=== PATIENT | female | born 1980 | race Caucasian/White ===

== ENCOUNTER → 2023-10-26 11:33 | Outpatient (BNVA) | payer OTHER, SELFPAY | PROVIDERS: PCP Family Medicine; Visit Provider Family Medicine | DX: E05.00 Thyrotoxicosis with diffuse goiter without thyrotoxic crisis or storm (principal); G35 Multiple sclerosis; I25.10 Atherosclerotic heart disease of native coronary artery without angina pectoris; Z79.899 Other long term (current) drug therapy | CPT/HCPCS: 80053; 80061; 84439; 84443; 85025 ==

== ENCOUNTER → 2023-11-16 13:35 | Outpatient (BNVA) | payer OTHER, SELFPAY | PROVIDERS: PCP Family Medicine; Visit Provider Family Medicine | DX: L98.9 Disorder of the skin and subcutaneous tissue, unspecified (principal) | CPT/HCPCS: 88305 ==

== ENCOUNTER → 2023-11-26 09:00 | Outpatient (BNVA) | payer OTHER, SELFPAY | PROVIDERS: PCP Family Medicine; Referring Provider Family Medicine; Visit Provider Psychiatry & Neurology Neurology | DX: G35 Multiple sclerosis (principal); E05.00 Thyrotoxicosis with diffuse goiter without thyrotoxic crisis or storm; H57.89 Other specified disorders of eye and adnexa; E07.9 Disorder of thyroid, unspecified; I25.10 Atherosclerotic heart disease of native coronary artery without angina pectoris; E53.8 Deficiency of other specified B group vitamins | CPT/HCPCS: 36415; 82306; 82607; 82746; 83921 ==

== ENCOUNTER 2024-01-02 06:53 | Outpatient (CLI) | payer OTHER, SELFPAY ==
--- NOTE | 2024-01-02 07:15 | MR_ITS ---
WS: [id number] MRI BRAIN WITH AND WITHOUT CONTRAST HISTORY: G35 - Multiple sclerosis COMPARISON: 09/14/2022 TECHNIQUE: Multiplanar imaging performed through the brain with MultiHance 16 ml's IV. No interval change in the T2 and FLAIR hyper intensities in the callosal and pericallosal distributio n. Slightly greater demyelinating lesions with a linear configuration in the LEFT pericallosal region . There are few additional juxtacortical and subcortical white matter lesions. As compared to the ryan or study from 09/14/2022 no interval progression. No cerebellar lesions identified. The upper cervical cord is negative. No susceptibility artifacts or prior lacunar infarcts. Ventricles and extra-axial spaces are normal. Clivus and pituitary gland are normal. Visualized posterior fossa and brainstem are also normal. Postcontrast images are negative for masses or vascular malformations. No enhancement within the demy elinating lesions. Dural venous sinuses are normal. Paranasal sinuses: Well aerated with no significant disease. Tornwaldt cyst in the posterior RIGHT na sopharynx measures 6 mm. Mastoid air cells: Normal. Calvarium and scalp: Normal. MR/MR head wo/w con [id number] IMPRESSION: 1. Stable, nonenhancing demyelinating lesions as described above. No change si nce 09/14/2022. Number of demyelinating lesions is just slightly increased in th e LEFT pericallosal distribution. 2. No acute infarct.
[2024-01-02] MEDS: gadobenate dimeglumine 20 mL vial 16 ML IV (07:52)
== END 2024-01-02 06:54 | disposition home or self-care (01) ==
PROVIDERS: PCP Family Medicine; Visit Provider Psychiatry & Neurology Neurology
DX: G35 Multiple sclerosis (principal); J39.2 Other diseases of pharynx
CPT/HCPCS: 70553; A9577

== ENCOUNTER 2024-01-03 14:55 | Outpatient (CLI) | payer OTHER, SELFPAY ==
--- NOTE | 2024-01-03 15:15 | MR_ITS ---
WS: [id number] MRI CERVICAL SPINE with and without contrast HISTORY: G35 - Multiple sclerosis COMPARISON: 09/18/2022 Technique: Multiplanar, multisequence noncontrast imaging of the cervical spine. Post MRI imaging 16 mL MultiHance. Mild LEFT curvature cervical spine. No inferior displacement of the cerebellar tonsils. No cord atrophy or edema. No definite identifiable demyelinating lesions within the cervical cord. Th ere is very minimal increased, intermediate signal, along the ventral cord at the C4 level through th e upper thoracic cord. Suspicious but indeterminate for demyelinating plaque. On the prior report att ention was directed to the C4-5 level. Suspicious lesions at the C4-5 level were indicated. Craniocervical junction, C1 and C2 relationship, odontoid process and soft tissues are normal. No disc protrusions or significant osteophytosis. No facet joint arthritis. There is no central or fo raminal stenosis. No postcontrast enhancement of the cervical cord. No active demyelination is identified. Mild thyromegaly. No enhancing nodules. MR/MR cervical spine wo/w [id number] IMPRESSION: 1. Subtle areas of increased T2 and FLAIR signal along the ventral cervical co rd from C4 through the upper thoracic spine intermittently visualized. These ar e very subtle areas and indeterminate for demyelinating disease. There is no en hancement. 2. No cervical spine stenosis.
[2024-01-03] MEDS: gadobenate dimeglumine 20 mL vial IV (15:47)
--- NOTE | 2024-01-03 16:00 | MR_ITS ---
WS: [id number] MRI THORACIC SPINE with and without contrast HISTORY: G35 - Multiple sclerosis COMPARISON: 09/18/2022 TECHNIQUE: Multiplanar sequences are performed in sagittal and axial planes. MultiHance 16 mL. Normal thoracic alignment. No fractures or marrow edema. Reidentified is increased T2 and FLAIR signal in the central and LEFT lateral thoracic cord at T8-9 e xtending over a length of 7 mm. There is additional areas of increased linear signal which I suspect are probably artifact. None of these areas enhance. No central or foraminal stenosis. Paravertebral soft tissues are normal. Bilateral adrenal nodules un changed. Probably representing benign adenomas. MR/MR thoracic spine wo/w [id number] IMPRESSION: 1. No enhancing demyelinating lesions in the thoracic cord. 2. Stable, nonenhancing 7 mm demyelination at T8-9. 3. There are a few additional linear areas of increased signal in the thoracic cord, favor artifact.
== END 2024-01-03 14:56 | disposition home or self-care (01) ==
LOC: RAD 14:55
PROVIDERS: PCP Family Medicine; Visit Provider Psychiatry & Neurology Neurology
DX: G35 Multiple sclerosis (principal); E05.00 Thyrotoxicosis with diffuse goiter without thyrotoxic crisis or storm
CPT/HCPCS: 72156; 72157; A9577

== ENCOUNTER 2024-01-17 06:00 | Outpatient (CLI) | payer OTHER, SELFPAY | END 2024-01-17 06:01 | disposition home or self-care (01) | PROVIDERS: PCP Family Medicine; Visit Provider Internal Medicine | DX: I49.8 Other specified cardiac arrhythmias (principal); R07.9 Chest pain, unspecified | CPT/HCPCS: 93005 ==

== ENCOUNTER 2024-01-28 09:35 | Outpatient (CLI) | payer OTHER, SELFPAY ==
[2024-01-28 10:30] LABS: Urine Creatinine 41 mg/dL (28-217)
[2024-01-28 10:52] LABS: Total Volume Urine 2600 ml
== END 2024-01-28 09:36 | disposition home or self-care (01) ==
LOC: LAB 09:35
PROVIDERS: PCP Family Medicine; Visit Provider Internal Medicine
DX: E05.00 Thyrotoxicosis with diffuse goiter without thyrotoxic crisis or storm (principal); R53.83 Other fatigue; Z48.02 Encounter for removal of sutures
CPT/HCPCS: 82530; 82570

== ENCOUNTER 2024-02-29 13:09 | Outpatient (CLI) | payer OTHER, SELFPAY ==
--- NOTE | 2024-02-29 | ECG_ITS ---
[facility]: 2024-02[facility]29 Pat Name: Elvira Dobbs Department: Room: Gender: Female Natural Resource Technician: : 1980 Requested By: Arti Pro Order Number: [id number] Victoria MD: Arti Pro M.D. Interpretive Statements Lung unchanged pre/post procedure; Intraprocedure shortess of breath; Symptoms resoled by discharge PROCEDURE: At the baseline, the patient's blood pressure was 121/92 with a heart rate of 85. The baseline electrocardiogram showed normal sinus rhythm with normal ST-Ts.. The patient exercised for 5 minutes and 45 on a standard John protocol. Patient attained a maximum heart rate of 169 beats per minute(94% of the maximum predicted heart rate) with a blood pressure at the peak exercise of 186/69 mm Hg. The EKG at the peak exercise revealed no significant changes. Patient did not have any chest pain or any significant cardiac arrhythmias with the exercise During the recovery phase, there were no new changes. Blood pressure at the end of the recovery phase was 108/80 mm Hg with a heart rate of 92 per minute. CONCLUSION: 1. No severe EKG changes with the normal exercise . 2. No exercise-induced chest pain or cardiac arrhythmia 3. Slightly impaired exercise tolerance, attained a maximum of 7 point METs Electronically Signed On 03-02-2024 23:05:35 CDT by Arti Pro M.D. [email or web address]
[2024-02-29 13:19] VITALS: BMI 27.9
--- NOTE | 2024-02-29 13:41 | USCV_ITS ---
Stress Echo Elvira Dobbs Age: 43 Gender: F : 1980 Exam Date: 02/29/2024 13:53 Ordering Phys: Arti Pro MD ([email or web address]) Technologist: [place] [facility] [place] cp Rhythm: Sinus Patient History: Chest pain Cardiac Medications: Medications in past 24 hours: Contrast: Stress Results Protocol: John Total dose(mL): Exercise Duration (min:sec): 5:45 METS: 7 Resting HR: 78 Resting BP: 121 / 92 Peak HR: 169 Peak BP: 186 / Max Predicted HR: 179 94 % Max Predicted HR Target HR: 152 Double Product: [id number] Stress Summary: The patient's target heart rate was achieved BP Response: Normal Reason for Termination: Maximal effort/unable to continue Cardiac Symptoms: None ECG Analysis Resting ECG: Please see separate report Stress ECG: Please see separate report Arrhythmia: Please see separate report MEASUREMENTS (Male/Female) Normal Values FINDINGS The patient echocardiogram normal LV size and ejection fraction. Segmental wall motion analysis revealed no gross wall motion abnormalities. Normal aortic root. No pericardial effusion. With the peak exercise, there was good augmentation of all the segments with no exercise-induced wall motion abnormalities. During the recovery phase, there was no new changes CONCLUSIONS 1. Normal echocardiographic response to exercise 2. Low probability for coronary ischemia, based on the above findings Dr Arti Pro MD FAC (Electronically Signed) Final Date: 01 March 2024 16:35 S
[2024-02-29 14:17] VITALS: BP 108/80; PULSE 91
== END 2024-02-29 13:10 | disposition home or self-care (01) ==
PROVIDERS: PCP Family Medicine; Visit Provider Internal Medicine Cardiovascular Disease
DX: I25.118 Atherosclerotic heart disease of native coronary artery with other forms of angina pectoris (principal)
CPT/HCPCS: 93017; 93350

== ENCOUNTER 2024-04-15 11:00 | Outpatient (CLI) | payer OTHER, SELFPAY ==
--- NOTE | 2024-04-15 11:15 | USR_ITS ---
PROCEDURE INFORMATION: Exam: US Soft Tissue Head and Neck, Thyroid Exam date and time: 04/15/2024 11:16 AM Age: 43 years old Clinical indication: Condition or disease; Other: Nodule; Additional info: Thyroid nodule, include tirads TECHNIQUE: Imaging protocol: Real-time ultrasound scan of the neck with image documentation. Exam focused on the thyroid. COMPARISON: MR cervical spine wo/w [id number] 01/03/2024 4:32 PM FINDINGS: Right thyroid lobe: Enlarged without focal nodule. Increased vasculature. Left thyroid lobe: Enlarged without focal nodule. Increased vasculature. Isthmus: No nodules. Lymph nodes: No enlarged lymph nodes. US/US thyroid [id number] IMPRESSION: Mildly hypertrophic and hyperemic thyroid gland without focal nodule. Compatible with mild nonspecific thyroiditis, correlate clinically.
== END 2024-04-15 11:01 | disposition home or self-care (01) ==
LOC: RAD 11:00
PROVIDERS: PCP Family Medicine; Visit Provider Internal Medicine
DX: E04.1 Nontoxic single thyroid nodule (principal)
CPT/HCPCS: 76536

== ENCOUNTER → 2024-05-01 10:26 | Outpatient (BNVA) | payer OTHER, SELFPAY | PROVIDERS: PCP Family Medicine; Visit Provider Nurse Practitioner | DX: R39.9 Unspecified symptoms and signs involving the genitourinary system (principal); R10.9 Unspecified abdominal pain | CPT/HCPCS: 81000; 87086 ==

== ENCOUNTER → 2024-05-12 10:34 | Outpatient (BNVA) | payer OTHER, SELFPAY | PROVIDERS: PCP Family Medicine; Visit Provider Internal Medicine | DX: E04.1 Nontoxic single thyroid nodule (principal); E05.00 Thyrotoxicosis with diffuse goiter without thyrotoxic crisis or storm; H57.89 Other specified disorders of eye and adnexa; E07.9 Disorder of thyroid, unspecified; E27.9 Disorder of adrenal gland, unspecified | CPT/HCPCS: 84439; 84443; 84480 ==

== ENCOUNTER 2024-05-26 07:21 | Emergency (ER) | payer OTHER, SELFPAY ==
[2024-05-26 07:24] VITALS: BP 158/101; PULSE 68; RESP 16; TEMP 36.7; O2SAT 99
--- NOTE | 2024-05-26 07:26 | ECG_ITS ---
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
--- NOTE | 2024-05-26 07:26 | XR_ITS ---
WS: [email or web address] PORTABLE CHEST HISTORY: dyspnea/cough COMPARISON: None available. Lungs are clear and well expanded. No pleural effusion or pneumothorax. Cardiac size: Normal. Mediastinum/Aorta: Normal mediastinum. No osseous abnormality seen. XR/XR chest 1V portable [id number] IMPRESSION: Unremarkable portable chest.
--- NOTE | 2024-05-26 07:33 | W.ED.CHESTPA ---
HPI - Chest Pain General: Chief Complaint: Chest Pain Stated Complaint: n, chest pain and shoulder pain Time Seen by Provider: 05/26/24 07:25 History of Present Illness: 43-year-old female history of MS and a history of coronary artery disease presents emergency room with onset chest pain extending to the left shoulder. Patient does have a history of previous coronary artery disease and had a stent placed in 2019. Did not February 2024 she has not stress echo that was read as negative. Associated symptoms: Deny abdominal pain, dyspnea or fever(s) Related Data Home Medications Medication Instructions Recorded Confirmed aspirin 81 mg tablet,delayed 81 mg PO QAM 10/26/23 05/26/24 release bismuth subsalicylate 262 mg/15 mL 524 mg PO QID PRN Indigestion 05/26/24 05/26/24 oral suspension (Pepto-Bismol) ofatumumab 20 mg/0.4 mL 20 mg SUBCUT .Q30D 05/26/24 05/26/24 subcutaneous pen injector (Kesimpta Pen) Previous Rx's Medication Instructions Recorded armodafinil 250 mg tablet 250 mg PO DAILY #30 tabs 11/26/23 cholecalciferol (vitamin D3) 1,250 50,000 unit PO .weekly #14 caps 11/27/23 mcg (50,000 unit) capsule atorvastatin 20 mg tablet (Lipitor) 20 mg PO DAILY #90 tabs 01/17/24 escitalopram oxalate 10 mg tablet 10 mg PO DAILY #90 tabs 01/23/24 (Lexapro) hydroxyzine HCl 50 mg tablet 50 mg PO BID #180 tabs 01/23/24 atomoxetine 60 mg capsule 60 mg PO DAILY #30 caps 04/18/24 carvedilol 25 mg tablet 25 mg PO BID #180 tabs 04/21/24 oxybutynin chloride 5 mg 5 mg PO DAILY #30 tabs 05/12/24 tablet,extended release 24 hr ondansetron 4 mg disintegrating 4 mg PO Q6H PRN nausea and 05/26/24 tablet vomiting #20 tabs Allergies Allergy/AdvReac Type Severity Reaction Status Date / Time methimazole Allergy Mild ALGY-Hives Verified 05/09/24 12:56 Review of Systems Const: Denies: fever(s) or chills Card: Denies: chest pain Resp: Denies: dyspnea GI: Denies: abdominal pain : Denies: dysuria, urinary frequency or urinary urgency Musc: Denies: neck pain or back pain Skin/Breast: Denies: rash PFSH ED PFSH: Medical History Alcohol use disorder History of ST elevation myocardial infarction (STEMI) Anxiety Moderate major depression Interstitial cystitis (chronic) without hematuria ADHD Hypertension Graves disease Multiple sclerosis Thyroid eye disease Coronary artery disease Surgical History Stented coronary artery History of heart artery stent Family History Father Hypertension Social History Smoking and tobacco/nicotine status: former use of tobacco/nicotine Quit status (tobacco/nicotine): has quit using Former quit date comment: 20PY quit in 03/2020 Alcohol intake: current Alcohol intake frequency: 3 or more drinks per day Alcohol type: beer Substance/Drug Use: never Adopted: No service: No Current occupational exposures/hazards: No Physical Exam Const: COMMON NORMALS: no acute distress GENERAL APPEARANCE: cooperative and comfortable ORIENTATION/CONSCIOUSNESS: Yes awake, Yes oriented to person, Yes oriented to place and Yes oriented to time HENMT: COMMON NORMALS: normocephalic, atraumatic and hearing grossly normal bilaterally HEAD & SCALP: normocephalic and atraumatic Resp: COMMON NORMALS: normal respiratory effort, No retractions, No use of accessory muscles and clear to auscultation bilaterally AUSCULTATION: clear to auscultation bilaterally Cardio: COMMON NORMALS: regular rate, regular rhythm and No murmurs present (Cardio) RATE: regular rate RHYTHM: regular rhythm GI: COMMON NORMALS: Soft to palpation and No hepatosplenomegaly present AUSCULTATION: Yes normoactive bowel sounds PALPATION: Yes Soft to palpation, No Tenderness to palpation present (GI), No Guarding due to palpation present (GI) and Yes No hepatosplenomegaly present Extremity: COMMON NORMALS: normal to inspection, capillary refill normal, no clubbing, cyanosis or edema, no calf tenderness and no pedal edema Neuro: SENSORIUM/ORIENTATION: Yes oriented to person, Yes oriented to place and Yes oriented to time Skin: COMMON NORMALS: no rashes or lesions noted GENERAL SKIN EXAM: no rashes or lesions noted Course Vital Signs: Vital signs: Vital Signs Temperature 98.1 F 05/26/24 07:24 Pulse Rate 68 05/26/24 10:19 Respiratory Rate 16 05/26/24 07:24 Blood Pressure 118/81 05/26/24 10:19 Pulse Oximetry 97 05/26/24 10:19 Oxygen Delivery Me thod Room Air 05/26/24 07:24 MDM - Chest Pain Medical Decision Making Patient complaining some mild stomach upset no other symptoms she has not had any dysuria urgency or frequency has a history of multiple sclerosis her cardiac enzymes and EKG did not show any acute changes. Will discharge patient home with ondansetron to use as needed. Have her follow-up with her primary care doctor return if she has further symptoms. Medical Records I reviewed the patient's medical records. Lab Data I reviewed the patient's lab results. 05/26/24 07:51 05/26/24 07:51 Radiology Impressions Chest X-Ray 05/26/24 07:26 IMPRESSION: Unremarkable portable chest. Laboratory Results WBC 6.97 10^3/uL (3.29-11.43) 05/26/24 07:51 RBC 4.61 10^6/uL (3.85-5.65) 05/26/24 07:51 Hgb 14.20 g/dL (11.27-16.99) 05/26/24 07:51 Hct 44.4 % (36-47) 05/26/24 07:51 MCV 96.3 fl (85-98) 05/26/24 07:51 MCH 30.8 pg (27-33) 05/26/24 07:51 MCHC 32.0 g/dL (30-55) 05/26/24 07:51 RDW 13.2 % (12.1-15.1) 05/26/24 07:51 Plt Count 305 10^3/cmm (157-399) 05/26/24 07:51 MPV 10.9 fL (7.4-10.4) H 05/26/24 07:51 Neut % (Auto) 70.9 % 05/26/24 07:51 Lymph % (Auto) 17.8 % 05/26/24 07:51 Esmeralda % (Auto) 6.9 % 05/26/24 07:51 Eos % (Auto) 2.4 % 05/26/24 07:51 Baso % (Auto) 1.6 % 05/26/24 07:51 Neut # (Auto) 4.94 10^3/uL (1.8-7.7) 05/26/24 07:51 Lymph # (Auto) 1.2 10^3/uL (0.8-4.8) 05/26/24 07:51 Esmeralda # (Auto) 0.5 10^3/uL (0.2-0.9) 05/26/24 07:51 Eos # (Auto) 0.2 10^3/uL (0.0-0.8) 05/26/24 07:51 Baso # (Auto) 0.1 10^3/uL (0.0-0.1) 05/26/24 07:51 Nucleated RBC % (auto) 0 % 05/26/24 07:51 Nucleated RBCs # 0.0 /100WBC 05/26/24 07:51 Sodium 139 mmol/L (136-145) 05/26/24 07:51 Potassium 4.2 mmol/L (3.5-5.1) 05/26/24 07:51 Chloride 102 mmol/L (98-107) 05/26/24 07:51 Carbon Dioxide 24 mmol/L (22-29) 05/26/24 07:51 Anion Gap 17.2 (5-19) 05/26/24 07:51 BUN 9 mg/dL (6-20) 05/26/24 07:51 Creatinine 0.5 mg/dL (0.5-0.9) 05/26/24 07:51 GFR Calculation 136.0 mL/min (90-130) H 05/26/24 07:51 Glucose 89 mg/dL (65-115) 05/26/24 07:51 Calculated Osmolality 286 mOsm/kg (285-295) 05/26/24 07:51 Calcium 9.7 mg/dL (8.5-10.5) 05/26/24 07:51 Total Bilirubin 0.5 mg/dL (0.15-1.2) 05/26/24 07:51 AST 9 U/L (0-32) 05/26/24 07:51 ALT 11 U/L (0-33) 05/26/24 07:51 Alkaline Phosphatase 73 U/L (35-105) 05/26/24 07:51 Troponin T Baseline < 6 ng/L (0-10) 05/26/24 07:51 Troponin T 120 Minute 6.00 ng/L (0-10) 05/26/24 10:19 Delta Troponin T 0.71824 ABS# (0-10) 05/26/24 10:19 Total Protein 7.1 g/dL (6.6-8.7) 05/26/24 07:51 Albumin 4.6 g/dL (3.5-5.2) 05/26/24 07:51 Globulin 2.5 g/dL (1.3-4.6) 05/26/24 07:51 All radiology interpretation(s) finalized by discharge Discharge Plan Discharge Patient Disposition: Home Clinical Impression: Atypical chest pain, Gastroenteritis Condition: Stable Prescriptions: New ondansetron 4 mg tablet,disintegrating 4 mg PO Q6H PRN (Reason: nausea and vomiting) Qty: 20 0RF No Action armodafinil 250 mg tablet 250 mg PO DAILY Qty: 30 3RF aspirin 81 mg tablet,delayed release (DR/EC) 81 mg PO QAM escitalopram oxalate [Lexapro] 10 mg tablet 10 mg PO DAILY Qty: 90 1RF hydroxyzine HCl 50 mg tablet 50 mg PO BID Qty: 180 1RF atorvastatin [Lipitor] 20 mg tablet 20 mg PO DAILY Qty: 90 3RF oxybutynin chloride 5 mg tablet extended release 24hr 5 mg PO DAILY Qty: 30 3RF Hold Instructions: Doctor's Order carvedilol 25 mg tablet 25 mg PO BID Qty: 180 3RF Rx Instructions: must administer with a meal/food cholecalciferol (vitamin D3) 1,250 mcg (50,000 unit) capsule 50,000 unit PO .weekly Qty: 14 3RF Rx Instructions: Sunday atomoxetine 60 mg capsule 60 mg PO DAILY Qty: 30 3RF bismuth subsalicylate [Pepto-Bismol] 262 mg/15 mL Suspension 524 mg PO QID PRN (Reason: Indigestion) Kesimpta Pen 20 mg/0.4 mL pen injector 20 mg SUBCUT .Q30D Discharge Orders: Discharge ED (Routine); Ordered 05/26/24 Ordered By: Jamal Mueller Referrals: Familia Benavides MD [Primary Care Provider] - Discharge Diet: Full LIquid Discharge Activity: Increase activity as tolerated Patient Instructions: Gastroenteritis (ED), Opioid Safety, Pain Management Activity Restrictions/Additional Instructions: Thank you for choosing [facility] for your healthcare needs today. It is very important that you follow up as instructed or that you return to the Emergency Department should you have concerns or if your condition changes or worsens in any way. You were seen in the emergency room complaints of chest discomfort as well as some abdominal discomfort and nausea. Your cardiac enzymes and EKG did not show any acute changes. Will discharge you home recommend a liquid diet for the next 24 to 48 hours and advance as tolerated you are given ondansetron to use as needed. If you have worsening of symptoms or recurrence or any development of further chest pain return to the emergency room. Coding Level of Care Code ED Machine Bobbin Winder for Chaka Rudolph
[2024-05-26 08:07] LABS: Basophils # 0.1 10^3/uL (0.0-0.1); Basophils % 1.6 %; Eosinophils # 0.2 10^3/uL (0.0-0.8); Eosinophils % 2.4 %; Hematocrit 44.4 % (36-47); Lymphocytes # 1.2 10^3/uL (0.8-4.8); Lymphocytes % 17.8 %; Mean Corpuscular Hemoglobin 30.8 pg (27-33); Mean Corpuscular Volume 96.3 fl (85-98); Mean Platelet Volume 10.9 fL (7.4-10.4); Monocytes # 0.5 10^3/uL (0.2-0.9); Monocytes % 6.9 %; Neutrophils # 4.94 10^3/uL (1.8-7.7); Neutrophils % 70.9 %; Nucleated Red Blood Cells % 0 %; Platelet Count 305 10^3/cmm (157-399); Red Blood Count 4.61 10^6/uL (3.85-5.65); Red Cell Distribution Width 13.2 % (12.1-15.1); White Blood Count 6.97 10^3/uL (3.29-11.43)
[2024-05-26 08:13] VITALS: BP 158/101; PULSE 70; O2SAT 97
[2024-05-26 08:21] LABS: Alanine Aminotransferase 11 U/L (0-33); Albumin Level 4.6 g/dL (3.5-5.2); Alkaline Phosphatase 73 U/L (35-105); Anion Gap 17.2 (5-19); Aspartate Amino Transferase 9 U/L (0-32); Blood Urea Nitrogen 9 mg/dL (6-20); Calcium 9.7 mg/dL (8.5-10.5); Carbon Dioxide 24 mmol/L (22-29); Chloride 102 mmol/L (98-107); Creatinine Clr Calc Pharmacy 154.1619; Globulin 2.5 g/dL (1.3-4.6); Glucose 89 mg/dL (65-115); Osmolality Calculated 286 mOsm/kg (285-295); Potassium 4.2 mmol/L (3.5-5.1); Sodium 139 mmol/L (136-145); Total Bilirubin 0.5 mg/dL (0.15-1.2); Total Protein 7.1 g/dL (6.6-8.7); Troponin(5th) Baseline < 6 ng/L (0-10)
[2024-05-26] MEDS: ondansetron 2 mg/ML SDV 2 mL 4 MG IVP (08:55)
[2024-05-26] MEDS: aspirin 81 mg Chew Tablet 324 MG PO (08:57)
--- NOTE | 2024-05-26 09:40 | ECG_ITS ---
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
[2024-05-26 09:51] VITALS: BP 124/86; PULSE 67; O2SAT 97
[2024-05-26 10:19] VITALS: BP 118/81; PULSE 68; O2SAT 97
[2024-05-26 10:55] LABS: Troponin 5 2HR Delta 0.00001 ABS# (0-10)
[2024-05-26 12:14] VITALS: BP 118/88; PULSE 66; O2SAT 96
== END 2024-05-26 12:18 | disposition home or self-care (01) ==
PROVIDERS: Emergency Provider Family Medicine; PCP Family Medicine
DX: R07.89 Other chest pain (principal); K52.9 Noninfective gastroenteritis and colitis, unspecified; Z79.82 Long term (current) use of aspirin; Z87.891 Personal history of nicotine dependence; I25.10 Atherosclerotic heart disease of native coronary artery without angina pectoris; I10 Essential (primary) hypertension
CPT/HCPCS: 71045; 80053; 84484; 85025; 93005; 96374; 99285; J2405

== ENCOUNTER 2024-11-04 14:55 | Outpatient (CLI) | payer OTHER, SELFPAY ==
[2024-11-04 16:23] LABS: Free T4 Free Thyroxine 0.99 ng/dL (0.82-1.77); Thyroid Stimulating Hormone 1.87 uIU/mL (0.27-4.20)
== END 2024-11-04 14:56 | disposition home or self-care (01) ==
PROVIDERS: PCP Family Medicine; Visit Provider Internal Medicine
DX: E04.1 Nontoxic single thyroid nodule (principal); E05.00 Thyrotoxicosis with diffuse goiter without thyrotoxic crisis or storm; H57.89 Other specified disorders of eye and adnexa; E07.9 Disorder of thyroid, unspecified
CPT/HCPCS: 84439; 84443; 84480

== ENCOUNTER → 2024-11-17 16:29 | Outpatient (BNVA) | payer OTHER, SELFPAY | PROVIDERS: PCP Family Medicine; Visit Provider Psychiatry & Neurology Neurology | DX: G35 Multiple sclerosis (principal); R41.3 Other amnesia | CPT/HCPCS: 36415; 82306; 83735 ==

== ENCOUNTER 2024-11-27 10:45 | Outpatient (CLI) | payer OTHER, SELFPAY ==
--- NOTE | 2024-11-27 11:00 | MR_ITS ---
WS: [email or web address] MRI HEAD WITH CONTRAST TECHNIQUE: Sagittal T1, T2 axial, T2 axial FLAIR, axial susceptibility weighted imaging, axial diffusion weighted images, and coronal T2 images were obtained. Pre and post-T1 axial and post T1 coronal images. ADC and FSPGR images. CLINICAL INFORMATION: G35 - Multiple sclerosis COMPARISON: MRI 2023 FINDINGS: No evidence of restricted diffusion to suggest acute ischemia. Patchy supratentorial white matter changes compatible with demyelinating disease. No significant disease progression compared to previous. No enhancing lesions to indicate active disease. Mild T1 hypointense lesion load. No significant thin sobia of the corpus callosum. Normal posterior fossa. Normal vascular flow voids at the skull base. No extra- axial fluid collections. No evidence of mass or mass effect. Paranasal sinuses are well aerated. Small retention cyst/Tornwaldt cyst in the posterior nasopharynx. No hemosiderin on the susceptibly weighted images. MR/MR head wo/w con [id number] IMPRESSION: 1. Mild patchy supratentorial white matter lesions compatible with demyelinati ng disease. No significant disease progression. 2. No enhancing lesions to indicate active disease. 3. Mild T1 hypointense lesion load. 4. No significant parenchymal volume loss. 5. No significant atrophy of the corpus callosum. 6. No other acute findings.
[2024-11-27] MEDS: gadobenate dimeglumine 20 mL vial 17 ML IV (11:51)
== END 2024-11-27 10:46 | disposition home or self-care (01) ==
LOC: RAD 10:46
PROVIDERS: PCP Family Medicine; Visit Provider Psychiatry & Neurology Neurology
DX: G35 Multiple sclerosis (principal)
CPT/HCPCS: 70553

== ENCOUNTER 2025-02-13 13:27 | Outpatient (CLI) | payer OTHER, SELFPAY ==
--- NOTE | 2025-02-13 13:45 | MR_ITS ---
WS: [email or web address] MRI CERVICAL SPINE with and without contrast HISTORY: MS monitoring COMPARISON: 01/03/2024 Technique: Multiplanar, multisequence noncontrast imaging of the cervical spine. Sagittal and axial T1 fat sat sequences post-MultiHance 17 cc IV. Mild curvature cervical spine. Mild ectopia the cerebellar tonsils similar to the prior study. No cord atrophy or enlargement. The previously described very subtle signal changes along the ventral cord are not definitely identified on today's exam. There are no enhancing cord lesions. No areas of demyelination are identified. Craniocervical junction, C1 and C2 relationship, odontoid process and soft tissues are normal. C2-C3: Normal. C3-C4: Normal. C4-C5: Normal. C5-C6: LEFT paracentral disc protrusion with mild osteophytic ridging around the vertebral bodies. Very minimal bilateral foraminal narrowing. C6-C7: Very small foraminal osteophytes. No stenosis. C7-T1: Normal. Paraspinal soft tissue are normal. MR/MR cervical spine wo/w [id number] IMPRESSION: 1. No cervical cord lesions or enhancement are identified on today's MRI. No a ctive demyelination. 2. No cord atrophy or enlargement. 3. LEFT paracentral disc protrusion at C5-6 and mild osteophytic ridging. Very minimal bilateral foraminal stenosis.
--- NOTE | 2025-02-13 14:30 | MR_ITS ---
WS: [email or web address] MRI THORACIC SPINE without contrast HISTORY: MS monitoring COMPARISON: 01/03/2024 TECHNIQUE: Multiplanar sequences are performed in sagittal and axial planes. Normal thoracic alignment. No cord atrophy or edema. Disc spaces are normal. No marrow edema or fractures. Previously identified subtle cord signal abnormality at T8-9 is not definitely identified on today's exam. There are no T2 signal changes in the thoracic cord. No high-grade central or foraminal stenosis. Mild facet joint arthropathy beginning at T7-8 2 the T12-L1 level. No stenosis. MR/MR thoracic spin wo con* [id number] IMPRESSION: 1. No signal abnormalities within the thoracic cord identified on today's unen hanced exam. The previously described subtle cord lesion at T8-9 is not identif ied as a discrete lesion. 2. No thoracic cord atrophy or edema. Areas of active demyelination cannot be excluded without IV contrast.
== END 2025-02-13 13:28 | disposition home or self-care (01) ==
LOC: RAD 13:28
PROVIDERS: PCP Family Medicine; Visit Provider Family Medicine
DX: G35.D Multiple sclerosis, unspecified (principal); M50.222 Other cervical disc displacement at C5-C6 level; M25.78 Osteophyte, vertebrae
CPT/HCPCS: 72146; 72156